=== PATIENT | male | born 1935 | race Caucasian/White ===

== ENCOUNTER 2023-12-06 00:06 | Emergency (ER) | payer MEDICARE, OTHER, SELFPAY ==
[2023-12-06 00:07] VITALS: BMI 29.0
[2023-12-06 00:11] VITALS: BP 200/101
--- NOTE | 2023-12-06 00:17 | ED.MUSCINJ ---
HPI-Injury
General
Chief Complaint: Fall
Source: patient
Exam Limitations: none
Time Seen by Provider: 12/06/23 00:07
Travel History
Have you had any contact with someone who has COVID-19?: No
Do you have any symptoms of coronavirus? Fever > 100 degrees, chills, cough, shortness of breath, sore throat, loss of taste or smell, muscle aches, or headache?: No
History of Present Illness-Injury
Is this injury a work related problem?: No
Is pt an associate of [facility]?: No
Initial Injury comments:
This is a 88 year old male that comes in with c/o right shoulder pain. States that he was in the bathroom getting ready for bed. States that he was taking some medication and he lost his balance. States that he fell on the right shoulder. States
that he did not hit his head or have any LOC. States that he occasionally gets dizzy. Denies any thinners. Denies any fever, chills, chest pain, SOB, abd pain, nausea, vomiting, diarrhea, headache, urinary burning.
Past History
Past History
ED Past Medical History: Arrthythmia (afib), Cancer (Skin CA), HTN, Hypercholesterolemia, Psychiatric (Anxiety, ) and Other (OA)
ED Past Surgical History: Bowel resection, Orthopedic (Right hip replacement, Right and left total knee replacement) and Other (Umbilical hernia repair, Retina reattachment, cataracts)
Social History
Tobacco: Non-smoker
Alcohol: Occasional
Drug: None
Personal:
Living: with family
Employment: Retired
Review of Systems
Review of Systems
All Other Systems: ROS reviewed and negative except as documented in HPI and ROS
Constitutional: Reports no symptoms; Denies fever or chills
EENT: Reports no symptoms
Respiratory: Reports no symptoms; Denies cough or trouble breathing
Cardiac: Reports no symptoms; Denies chest pain
ABD/GI: Reports no symptoms; Denies abdominal pain, nausea, vomiting or diarrhea
: Reports no symptoms; Denies dysuria, frequency or urgency
Musculoskeletal: Reports joint pain (Right shoulder pain)
Skin: Reports no symptoms
Neurological: Reports no symptoms; Denies dizzy or headache
Psychiatric: Reports no symptoms
Musculoskeletal Injury Exam
Musculoskeletal Injury Exam
Right Shoulder:
Pain with Movement?: Moderate
Tender to palpation?: Moderate
Soft tissue swelling?: None
External deformity and angulation?: Moderate
Joint effusion?: None
Contusion?: None
Hematoma-local bleeding into tissue?: None
Strain- Sprain- Tear (Connective tissue injury)?: None
Crepitus with movement?: No
Joint instability?: Yes
Malalignment/deformity?: Yes
Range of motion: Limited (Due to pain)
Distal skin color and temperature: normal-warm & good color
Capillary Refill: normal
Normal distal neurovascular exam?: Yes
Phy Exam
General Physical Exam
General Presentation: no apparent distress
General age: appears stated age
General Skin: warm and dry
General Habitus: elderly
General Mental: alert
General Hydration: appears well hydrated
ENT Exam
ENT Exam: TM's normal, pharynx normal and neck supple
Eye Exam
Eye Exam: EOMI
Cardiovascular Exam
Cardiovascular Exam: regular rate/rhythm, no edema and normal peripheral pulses
Pulmonary Exam
Pulmonary Exam: lungs clear, no respiratory distress, no rales, chest non tender, no crackles, no rhonchi, no wheezing and no cough
Gastrointestinal Exam
Gastrointestinal Exam: normal bowel sounds, non tender, soft, no organomegaly, no pulsatile mass and non distended
Musculoskeletal Exam
Musculoskeletal Exam: other (Appears right shoulder is dislocated. Some discomfort of the shoulder with flexion of the elbow. Able to move fingers and wrist)
Skin Exam
Skin Exam: normal color, warm/dry, no rash, no petechia and other (Abrasion left posterior mid back)
Psychiatric Exam
Psychiatric Exam: normal mood/affect
Injury Course
Orders/Labs/Results
Orders:
Orders
12/06/23 00:16
Shoulder, Right 2 Views [CR Shoulder - Right Min 2 View] Urgent
Comment:
Reason For Exam: Fall, shoulder pain
12/06/23 00:44
Ketorolac [Toradol] 30 mg .ROUTE .STK-MED ONE
Propofol [Diprivan] 20 ml .ROUTE .STK-MED
12/06/23 00:48
Ketorolac [Toradol] 30 mg IV NOW STA
12/06/23 00:58
CR Shoulder - Right 1 View Urgent
Comment: Portable
Reason For Exam: Post reduction
Procedures
Moderate Sedation
ASA Risk Score: Class I
Chart and allergies reviewed: Yes
Consent for anesthesia obtained: Yes
Time out completed (validating right patient & procedure): Yes
History of difficult intubation: No
Airway free of obstruction: Yes
Patient has a gag reflex: Yes
Patient is able to open mouth: Yes
Patient has no dentures: No
Patient has no loose teeth: No
Medication administered by Provider during Moderate Sedation: IV Propofol (mg)
Total dose administered: 50
Time drug administered: 00:59
Start Time: 00:59
Stop Time: 01:15
MDM/Problems Addressed
Differential Diagnosis Includes:
Shoulder dislocation. Shoulder fracture
MDM/Problems Addressed:
This is a 88 year old male that was getting ready for bed in his BR and lost his balance. States that he has pain in the right shoulder and believed it to be dislocation.
Will get X-rays.
Chronic conditions affecting care:
NA
Acute Exacerbation and/or Progression of Chronic Illness:
NA
*Pulse Oximetry
Patient hypoxic: no
*EKG
Interpreted by ED Provider?: NA
Rate: EKG- N/A
*Critical Care Note
Total Time (30-74mins, 75-104mins- exclusive of procedures): Not Applicable
ED Attending Note
-
Portions of this chart may have been created with voice recognition software.� Occasional wrong word or��sound alike� substitutions may have occurred due to the inherent limitations of voice recognition software.
Discharge Plan
Departure
Patient Disposition: Home (Routine Discharge)
Patient with high blood pressure during this ER visit?: Yes
Condition: Good
Covid-19: Not Applicable
Discharge Problem:
Shoulder dislocation with reduction
Prescriptions:
No Action
simvastatin 20 MG tablet
20 mg PO QPM
sertraline 100 mg Tablet
100 mg PO QPM
aspirin 81 mg Tablet,Delayed Release (Dr/Ec)
81 mg PO QPM
sotalol 120 mg Tablet
120 mg PO DAILY
cyanocobalamin (vitamin B-12) [Dodex] 1,000 mcg/mL Solution
1,000 mcg IM QMONTH
sotalol 80 MG tablet
80 mg PO QPM
acetaminophen 325 mg Tablet
650 mg PO Q4HPRN PRN (Reason: mild pain/MIMS/temp> 100.4F) Qty: 0 0RF
cyanocobalamin (vitamin B-12) 1,000 mcg Tablet
1,000 mcg PO DAILY Qty: 0 0RF
hydralazine 10 mg tablet
10 mg PO BID PRN (Reason: hypertension) Qty: 60 0RF
Rx Instructions:
SBP over 160 mm hg
cephalexin 500 mg capsule
500 mg PO BID Qty: 6 0RF
Referrals:
Andrew Roy MD [Family Provider] -
Interventions
Interventions:
*Risk Screen - Suicide Last Done: 12/06/23 00:30
*General Assessment Last Done: 12/06/23 00:30
*Neglect/Abuse Screening Last Done: 12/06/23 00:30
ED- Fall Risk Assessment Last Done: 12/06/23 00:30
*ED COVID-19 Vaccine History Last Done: 12/06/23 00:29
ED-Musculoskeletal Assessment Last Done: 12/06/23 00:30
ED- Neurological Assessment Last Done: 12/06/23 00:30
ED-Skin Assessment Last Done: 12/06/23 00:30
Discharge Date and Time
Discharge Date/Time: 12/06/23 02:00
Print Language: DIVEHI
[2023-12-06] MEDS: TORADOL 30 MG IV (00:49)
[2023-12-06 00:50] VITALS: BP 218/87
[2023-12-06 01:00] VITALS: BP 157/76
--- NOTE | 2023-12-06 04:46 | DOWNTIME ---
There was a [employer] Downtime on 12/06/2023 from 0100 to 12/06/2023 at 0439. Downtime documentation of patient's care, including medication administrations, has been reconciled in the electronic record per guidelines. Refer to the
patient's paper chart under the miscellaneous tab to see printed paper medication records and downtime forms.
== END 2023-12-06 02:00 | disposition home or self-care (01) ==
LOC: EMR 00:06
PROVIDERS: EMERGENCY PHYSICIAN Student in an Organized Health Care Education/Training Program; FAMILY PHYSICIAN Internal Medicine
DX: S43.004A Unspecified dislocation of right shoulder joint, initial encounter (principal); W19.XXXA Unspecified fall, initial encounter; I48.91 Unspecified atrial fibrillation; I10 Essential (primary) hypertension; E78.00 Pure hypercholesterolemia, unspecified; F41.9 Anxiety disorder, unspecified; Z85.828 Personal history of other malignant neoplasm of skin
CPT/HCPCS: 99283; 23655; 73020; 73030

== ENCOUNTER → 2023-12-12 10:56 | Outpatient (REF) | payer MEDICARE, OTHER, SELFPAY ==
[2023-12-12 12:31] LABS: % Basophils 0.7 % (0-2); % Eosinophils 3.2 % (0-6); % Immature Granulocytes 0.4 % (0-0.5); % Monocytes 9.5 % (1.7-9.3); % Neutrophils 76.2 % (42.2-75.2); Absolute Basophils 0.1 10^3/uL (0-0.2); Absolute Eosinophils 0.3 10^3/uL (0-0.7); Absolute Lymphocytes 0.8 10^3/uL (1.2-3.4); Absolute Monocytes 0.8 10^3/uL (0.1-0.6); Absolute Neutrophils 6.4 10^3/uL (1.4-6.5); Hematocrit 43.7 % (39.0-52.0); Hemoglobin 14.4 g/dL (13.0-18.0); Mean Corpuscular Hgb 32.3 pg (27.0-31.0); Mean Platelet Volume 10.8 fL (7.4-10.4); Nucleated Red Blood Cells % 0 % (-); Platelet Count 229 10^3/uL (130-400); Red Blood Cell Count 4.46 10^6/uL (4.70-6.10); Red Cell Dist. Width 12.5 % (11.5-14.5); White Blood Cell Count 8.4 10^3/uL (4.8-10.8)
[2023-12-12 13:19] LABS: ALT (SGPT) 14 U/L (0-50); AST (SGOT) 27 U/L (17-59); Albumin 4.5 g/dl (3.5-5.0); Alkaline Phosphatase 82 U/L (38-126); Blood Urea Nitrogen 29 mg/dl (9-20); Calcium 9.9 mg/dl (8.4-10.2); Carbon Dioxide 29 mmol/L (22-30); Chloride 99 mmol/L (98-107); Glucose 90 mg/dl (70-99); HDL Cholesterol 78 mg/dl; LDL Cholesterol, Calculated 69 mg/dl; Potassium 4.3 mmol/L (3.5-5.1); Sodium 138 mmol/L (135-145); Total Bilirubin 1.3 mg/dl (0.2-1.3); Total Cholesterol 164 mg/dl (50-199); Total Protein 7.7 g/dl (6.3-8.2); Triglyceride 89 mg/dl (10-149); Very Low Density Lipoprotein 17 mg/dl (0-30); eGFR > 60.00
== END ==
LOC: REG 10:56
PROVIDERS: ATTENDING PHYSICIAN Internal Medicine
DX: Z79.01 Long term (current) use of anticoagulants (principal); I48.20 Chronic atrial fibrillation, unspecified; I10 Essential (primary) hypertension; E78.2 Mixed hyperlipidemia; Z00.00 Encounter for general adult medical examination without abnormal findings
CPT/HCPCS: 36415; 80053; 80061; 85025

== ENCOUNTER 2024-05-21 11:51 | Emergency (ER) | payer MEDICARE, OTHER, SELFPAY ==
[2024-05-21 11:53] VITALS: BP 153/81
--- NOTE | 2024-05-21 12:20 | ED.GENMED ---
History of Present Illness
General
Chief Complaint: Swelling
Source: patient
Exam Limitations: none
Time Seen by Provider: 05/21/24 11:58
History of Present Illness
History of Present Illness:
88-year-old male presents with swelling to the left hand after falling yesterday. He states his ring is too tight on his ring finger. He was also due for x-rays of his forearm and hand from the fall today. He did not hit his head. No other
complaints
Past History
Past History
ED Past Medical History: Arrthythmia (afib), Cancer (Skin CA), HTN, Hypercholesterolemia, Psychiatric (Anxiety, ) and Other (OA)
ED Past Surgical History: Bowel resection, Orthopedic (Right hip replacement, Right and left total knee replacement) and Other (Umbilical hernia repair, Retina reattachment, cataracts)
Social History
Tobacco: Non-smoker
Alcohol: Occasional
Drug: None
Personal:
Living: with family
Employment: Retired
Phy Exam
Physical Exam
Physical Exam:
General: Well-appearing male no acute distress skin: Swelling noted to the left hand with skin tears to the forearm the ring on the left ring finger is tight to the skin
Vascular: Brisk cap refill to the left ring finger neurologic exam:
Good sensation left ring finger
Scores
Heart Failure Risk
Heart Failure Risk Score: Not Applicable
Course
Orders/Labs/Results
Orders:
Orders
05/21/24 12:15
CR Hand - Left Min 3 Views Urgent
Comment:
Reason For Exam: pain, trauma
Forearm, Left 2 View [CR Forearm - Left 2 View] Urgent
Comment:
Reason For Exam: pain, trauma
Vital Signs
Initial and Last Documented VS:
Initial Vital Signs
Temp Pulse Resp BP Pulse Ox
97.9 F 59 16 153/81 97
05/21/24 11:53 05/21/24 11:53 05/21/24 11:53 05/21/24 11:53 05/21/24 11:53
Last Documented Vital Signs
Temp Pulse Resp BP Pulse Ox
97.9 F 59 16 153/81 97
05/21/24 11:53 05/21/24 11:53 05/21/24 11:53 05/21/24 11:53 05/21/24 11:53
MDM/Problems Addressed
Differential Diagnosis Includes:
The ring on the left ring finger was not able to be removed without cutting it. The ring was cut and then removed.
X-rays of the left hand and forearm are ordered secondary to the fall
*Critical Care Note
Total Time (30-74mins, 75-104mins- exclusive of procedures): Not Applicable
Update Note
Update Note:
X-rays of the left forearm and hand are negative for acute findings other than degenerative changes. Patient stable for discharge
ED Attending Note
-
Portions of this chart may have been created with voice recognition software.� Occasional wrong word or��sound alike� substitutions may have occurred due to the inherent limitations of voice recognition software.
Discharge Plan
Departure
Patient Disposition: Home (Routine Discharge)
Date of Disposition: 05/21/24
Time of Disposition: 13:15
Patient with high blood pressure during this ER visit?: No
Discharge Problem:
ring on finger
Prescriptions:
No Action
simvastatin 20 MG tablet
20 mg PO QPM
sertraline 100 mg Tablet
100 mg PO QPM
aspirin 81 mg Tablet,Delayed Release (Dr/Ec)
81 mg PO QPM
sotalol 120 mg Tablet
120 mg PO DAILY
cyanocobalamin (vitamin B-12) [Dodex] 1,000 mcg/mL Solution
1,000 mcg IM QMONTH
sotalol 80 MG tablet
80 mg PO QPM
acetaminophen 325 mg Tablet
650 mg PO Q4HPRN PRN (Reason: mild pain/MIMS/temp> 100.4F) Qty: 0 0RF
cyanocobalamin (vitamin B-12) 1,000 mcg Tablet
1,000 mcg PO DAILY Qty: 0 0RF
hydralazine 10 mg tablet
10 mg PO BID PRN (Reason: hypertension) Qty: 60 0RF
Rx Instructions:
SBP over 160 mm hg
cephalexin 500 mg capsule
500 mg PO BID Qty: 6 0RF
Referrals:
Andrew Roy MD [Family Provider] -
Activity Restrictions/Additional Instructions:
Continue with localized wound care. Return if needed otherwise
Interventions
Interventions:
*Risk Screen - Suicide Last Done: 05/21/24 11:53
*General Assessment Last Done: 05/21/24 11:53
*Neglect/Abuse Screening Last Done: 05/21/24 11:53
Discharge Date and Time
Print Language: ARABIC
== END 2024-05-21 13:29 | disposition home or self-care (01) ==
LOC: EMR 11:51
PROVIDERS: EMERGENCY PHYSICIAN Student in an Organized Health Care Education/Training Program; FAMILY PHYSICIAN Internal Medicine
DX: S60.455A Superficial foreign body of left ring finger, initial encounter (principal); X58.XXXA Exposure to other specified factors, initial encounter; I48.91 Unspecified atrial fibrillation; I10 Essential (primary) hypertension; E78.00 Pure hypercholesterolemia, unspecified; F41.9 Anxiety disorder, unspecified; M19.90 Unspecified osteoarthritis, unspecified site
CPT/HCPCS: 99283; 73090; 73130

== ENCOUNTER → 2024-07-30 12:23 | Outpatient (REF) | payer MEDICARE, OTHER, SELFPAY ==
[2024-07-30 14:45] LABS: Glycohemoglobin (HgbA1c) 5.7 % (4.0-5.6)
[2024-07-30 15:30] LABS: Blood Urea Nitrogen 30 mg/dl (9-20); Glucose 93 mg/dl (70-99)
[2024-07-30 15:31] LABS: ALT (SGPT) 21 U/L (0-50); AST (SGOT) 31 U/L (17-59); Albumin 4.5 g/dl (3.5-5.0); Alkaline Phosphatase 54 U/L (38-126); Calcium 9.8 mg/dl (8.4-10.2); Carbon Dioxide 32 mmol/L (22-30); Chloride 101 mmol/L (98-107); HDL Cholesterol 81 mg/dl; LDL Cholesterol, Calculated 77 mg/dl; Sodium 142 mmol/L (135-145); Total Cholesterol 169 mg/dl (50-199); Total Protein 7.6 g/dl (6.3-8.2); Triglyceride 59 mg/dl (10-149); Very Low Density Lipoprotein 11 mg/dl (0-30); eGFR > 60.00
== END ==
LOC: REG 12:23
PROVIDERS: ATTENDING PHYSICIAN Nurse Practitioner Adult Health; FAMILY PHYSICIAN Internal Medicine
DX: R60.0 Localized edema (principal); I10 Essential (primary) hypertension; R26.89 Other abnormalities of gait and mobility; E78.5 Hyperlipidemia, unspecified; R29.6 Repeated falls; I48.20 Chronic atrial fibrillation, unspecified; R73.01 Impaired fasting glucose
CPT/HCPCS: 36415; 80051; 80053; 80061; 83036

== ENCOUNTER 2024-08-16 11:44 | Emergency (ER) | payer MEDICARE, OTHER, SELFPAY ==
[2024-08-16 11:52] VITALS: BP 133/69
--- NOTE | 2024-08-16 12:45 | ED.GENMED ---
History of Present Illness
General
Chief Complaint: Fall
Source: patient and family (Daughter at bedside)
Exam Limitations: none
Time Seen by Provider: 08/16/24 12:44
Nursing documentation reviewed up to this point in time: agreed with
History of Present Illness
History of Present Illness:
89-year-old male with history of A-fib on aspirin only, frequent falls, uses a walker, was using his walker to go from the living room to the bathroom when he states he lost his balance and fell. He struck right occiput area and right elbow, both
with deep clean abrasions. There was no loss of consciousness. He denies headache. He does have some neck soreness. Denies numbness or tingling or new weakness in his upper extremities.
Last fall one week ago. Typically after his falls he scoots over to steps or something he can hold on to and his typically helps him up. Occasionally if he hits his head or injury she sends him here.
He denies CP, SOB or injury to his extremities. He simply lost his balance which is not unusual for him.
Past History
Past History
ED Past Medical History: Arrthythmia (afib), Cancer (Skin CA), HTN, Hypercholesterolemia, Psychiatric (Anxiety, ) and Other (OA)
ED Past Surgical History: Bowel resection, Orthopedic (Right hip replacement, Right and left total knee replacement) and Other (Umbilical hernia repair, Retina reattachment, cataracts)
Social History
Tobacco: Non-smoker
Alcohol: Occasional
Drug: None
Personal:
Living: with family
Employment: Retired
Review of Systems
Review of Systems
Allergies reviewed?: Yes
All Other Systems: ROS reviewed and negative except as documented in HPI and ROS
Constitutional: Denies fever or fatigue
Respiratory: Denies trouble breathing
Cardiac: Denies chest pain, palpitations or syncope
ABD/GI: Denies abdominal pain, nausea, vomiting, diarrhea or anorexia
: Reports other ('it was a little uncomfortable' urinating today. Hx UTIs)
Musculoskeletal: Reports neck pain and other (chronic lymphedema); Denies back pain
Skin: Reports other (scrape back of head, right elbow)
Neurological: Denies dizzy, headache or numbness
Phy Exam
Physical Exam
Physical Exam:
GENERAL: No acute distress. A&Ox3.
CONSTITUTIONAL: Afebrile.
EYES: clear, conjunctivae normal
ENMT: moist mucus membranes, Pharynx nl
RESPIRATORY: Regular respirations, nonlabored, lungs clear.
CARDIOVASCULAR: Regular rate and rhythm, no murmurs, no rubs.
GI: Soft, nontender
MUSCULOSKELETAL: No spinal bony tenderness, mild bilateral neck ST tenderness. Legs large and heavy, chronic lymphedema, Well perfused.
SKIN: Warm, dry, pink. Deep clean abrasions occipital scalp and right elbow.
PSYCH: Normal mood and affect. Well kept, interactive and appropriate
NEUROLOGIC: Awake, alert and oriented. No focal neurological deficits. Strength equal throughout.
Course
Orders/Labs/Results
Orders:
Orders
08/16/24 11:[address] [CT Head W/o Iv Contrast] Urgent
Comment:
Reason For Exam: fall with head injury
08/16/24 12:45
Cervical Spine wo Contrast CT [CT Cervical Spine W/o Iv Contr] Urgent
Comment:
Reason For Exam: neck pain after fall
08/16/24 13:30
Complete Blood Count/With Diff Urgent
Comprehensive Metabolic Panel Urgent
Urinalysis Reflex To Culture Urgent
Date Specimen was Collected: 08/16/24
Time Specimen was Collected: 13:28
Abnormal Lab Results
08/16/24
13:30
RBC 4.30 L 10^6/uL
(4.70-6.10)
MCV 98.6 H fL
(80.0-94.0)
MCH 33.3 H pg
(27.0-31.0)
MPV 10.9 H fL
(7.4-10.4)
Absolute Neuts (auto) 7.1 H 10^3/uL
(1.4-6.5)
Absolute Lymphs (auto) 0.8 L 10^3/uL
(1.2-3.4)
Absolute Monos (auto) 0.7 H 10^3/uL
(0.1-0.6)
Absolute Eos (auto) 0.8 H 10^3/uL
(0-0.7)
Lymphocytes % 8.7 L %
(20.5-51.1)
Eosinophils % 8.1 H %
(0-6)
Potassium 5.8 H mmol/L
(3.5-5.1)
Carbon Dioxide 33 H mmol/L
(22-30)
BUN 37 H mg/dl
(9-20)
Glucose 100 H mg/dl
(70-99)
08/16/24 13:30
08/16/24 13:30
Vital Signs
Initial and Last Documented VS:
Initial Vital Signs
Temp Pulse Resp BP Pulse Ox
98.1 F 57 18 133/69 99
08/16/24 11:52 08/16/24 11:52 08/16/24 11:52 08/16/24 11:52 08/16/24 11:52
Last Documented Vital Signs
Temp Pulse Resp BP Pulse Ox
98.1 F 60 18 130/70 99
08/16/24 11:52 08/16/24 15:24 08/16/24 15:24 08/16/24 15:24 08/16/24 15:24
MDM/Problems Addressed
Differential Diagnosis Includes:
dehydration, UTI,
neck strain/fracture c spine
concussion/brain bleed
MDM/Problems Addressed:
89-year-old male with history of A-fib on aspirin only, frequent falls, uses a walker, was using his walker to go from the living room to the bathroom when he states he lost his balance and fell. He struck right occiput area and right elbow, both
with deep clean abrasions. There was no loss of consciousness. He denies headache. He does have some neck soreness. Denies numbness or tingling or new weakness in his upper extremities.
Last fall one week ago. Typically after his falls he scoots over to steps or something he can hold on to and his typically helps him up. Occasionally if he hits his head or injury she sends him here.
He denies CP, SOB or injury to his extremities. He simply lost his balance which is not unusual for him.
CBC: No clinically significant abnormality
CMP: K+ 5.8, BUN 37. otherwise normal. Most likely from dehydration/hemoconcentration will have pt recheck in 3-4 days after increasing fluids.
Discussed DC instructions with patient and daughter.
Pt stable for discharge, Ambulating well with walker
Out pt lab slip given to have K+ and BUN rechecked next week.
*Critical Care Note
Total Time (30-74mins, 75-104mins- exclusive of procedures): Not Applicable
ED Attending Note
-
Portions of this chart may have been created with voice recognition software.� Occasional wrong word or��sound alike� substitutions may have occurred due to the inherent limitations of voice recognition software.
Discharge Plan
Departure
Patient Disposition: Home (Routine Discharge)
Date of Disposition: 08/16/24
Time of Disposition: 14:51
Patient with high blood pressure during this ER visit?: No
Condition: Good
Discharge Problem:
Abrasion of scalp, Abrasion of right arm, Fall from slip, trip, or stumble, Mild dehydration
Instructions: Head Injury in Adults (DC), Preventing falls in adults, Skin Abrasions (DC), Dehydration in adults - ED discharge instructions
Prescriptions:
No Action
simvastatin 20 MG tablet
20 mg PO QPM
sertraline 100 mg Tablet
100 mg PO QPM
aspirin 81 mg Tablet,Delayed Release (Dr/Ec)
81 mg PO QPM
sotalol 120 mg Tablet
120 mg PO DAILY
cyanocobalamin (vitamin B-12) [Dodex] 1,000 mcg/mL Solution
1,000 mcg IM QMONTH
sotalol 80 MG tablet
80 mg PO QPM
acetaminophen 325 mg Tablet
650 mg PO Q4HPRN PRN (Reason: mild pain/MIMS/temp> 100.4F) Qty: 0 0RF
cyanocobalamin (vitamin B-12) 1,000 mcg Tablet
1,000 mcg PO DAILY Qty: 0 0RF
hydralazine 10 mg tablet
10 mg PO BID PRN (Reason: hypertension) Qty: 60 0RF
Rx Instructions:
SBP over 160 mm hg
cephalexin 500 mg capsule
500 mg PO BID Qty: 6 0RF
Referrals:
Andrew Roy MD [Family Provider] - Follow up in 5-7 days
Activity Restrictions/Additional Instructions:
As we discussed, your head CT and neck CT show nothing worrisome.
Your urinalysis is negative for infection
Your blood work shows mild dehydration, drink at least six 8 ounce glasses of water/fluid daily.
Have your blood work rechecked in 5 to 7 days to be sure the potassium and BUN are improved.
Interventions
Interventions:
*Risk Screen - Suicide Last Done: 08/16/24 11:52
*General Assessment Last Done: 08/16/24 14:53
*Neglect/Abuse Screening Last Done: 08/16/24 14:53
*ED COVID-19 Vaccine History Last Done: 08/16/24 14:53
*Nursing Disposition Last Done: 08/16/24 15:24
ED-Musculoskeletal Assessment Last Done: 08/16/24 14:53
ED- Neurological Assessment Last Done: 08/16/24 14:53
ED-Skin Assessment Last Done: 08/16/24 14:53
Discharge Date and Time
Discharge Date/Time: 08/16/24 15:25
Print Language: TELUGU
[2024-08-16 14:12] LABS: % Basophils 0.7 % (0-2); % Eosinophils 8.1 % (0-6); % Immature Granulocytes 0.3 % (0-0.5); % Lymphocytes 8.7 % (20.5-51.1); % Monocytes 7.8 % (1.7-9.3); % Neutrophils 74.4 % (42.2-75.2); Absolute Basophils 0.1 10^3/uL (0-0.2); Absolute Eosinophils 0.8 10^3/uL (0-0.7); Absolute Lymphocytes 0.8 10^3/uL (1.2-3.4); Absolute Monocytes 0.7 10^3/uL (0.1-0.6); Absolute Neutrophils 7.1 10^3/uL (1.4-6.5); Hematocrit 42.4 % (39.0-52.0); Hemoglobin 14.3 g/dL (13.0-18.0); Mean Corp Hgb Conc. 33.7 g/dL (33.0-37.0); Mean Corpuscular Hgb 33.3 pg (27.0-31.0); Mean Corpuscular Volume 98.6 fL (80.0-94.0); Mean Platelet Volume 10.9 fL (7.4-10.4); Nucleated Red Blood Cells % 0 % (-); Platelet Count 198 10^3/uL (130-400); Red Cell Dist. Width 12.6 % (11.5-14.5); Urine Albumin Negative (Neg - Trace); Urine Bilirubin Negative (Negative); Urine Character Clear (Clear); Urine Color Yellow; Urine Glucose Negative (Negative); Urine Ketone Negative (Negative); Urine Leukocyte Negative (Negative); Urine Nitrite Negative (Negative); Urine Occult Blood Negative (Negative); Urine Urobilinogen Negative (Neg - 1+); White Blood Cell Count 9.5 10^3/uL (4.8-10.8)
[2024-08-16 14:35] LABS: ALT (SGPT) 20 U/L (0-50); AST (SGOT) 30 U/L (17-59); Albumin 4.6 g/dl (3.5-5.0); Alkaline Phosphatase 65 U/L (38-126); Blood Urea Nitrogen 37 mg/dl (9-20); Calcium 10.2 mg/dl (8.4-10.2); Carbon Dioxide 33 mmol/L (22-30); Chloride 99 mmol/L (98-107); Glucose 100 mg/dl (70-99); Potassium 5.8 mmol/L (3.5-5.1); Sodium 137 mmol/L (135-145); Total Protein 7.6 g/dl (6.3-8.2); eGFR > 60.00
[2024-08-16 15:24] VITALS: BP 130/70
== END 2024-08-16 15:25 | disposition home or self-care (01) ==
LOC: EMR 11:44
PROVIDERS: Registered Nurse; EMERGENCY PHYSICIAN Emergency Medicine; FAMILY PHYSICIAN Internal Medicine
DX: S00.01XA Abrasion of scalp, initial encounter (principal); S40.811A Abrasion of right upper arm, initial encounter; W01.0XXA Fall on same level from slipping, tripping and stumbling without subsequent striking against object, initial encounter; R29.6 Repeated falls; E86.0 Dehydration; I48.91 Unspecified atrial fibrillation
CPT/HCPCS: 99284; 70450; 72125; 80053; 81003; 85025